=== PATIENT | male | born 1960 | race Caucasian/White ===

== ENCOUNTER 2020-02-16 12:06 | Observation (INO) ==
--- NOTE | 2020-02-16 15:05 | RAD ---
HISTORY:Chest painStudy: Single view chestComparison:NoneFindings:There is nonspecific elevation of the left hemidiaphragm no infiltrate, effusion, or pneumothorax identified .Cardiac and mediastinal contours are within normal limits .The soft tissues are intact .IMPRESSION:1. No acute cardiopulmonary abnormality.Electronically signed by: BRIGHT HOLLY (Feb 16, 2020 15:05:05)
[2020-02-16 15:12] LABS: BASOPHILS % (AUTO) 0.4 % (0.2-1.0); EOSINOPHILS % (AUTO) 0.7 % (0.9-2.9); HEMATOCRIT 44.9 % (42.0-54.0); HEMOGLOBIN 15.3 g/dL (13.5-18.0); LYMPHOCYTES # (AUTO) 0.7 X10^3/uL (1.3-2.9); LYMPHOCYTES % (AUTO) 20.1 % (21.0-51.0); MEAN CORPUSCULAR HEMOGLOBIN 29.9 pg (27.0-34.0); MEAN CORPUSCULAR HGB CONC 34.1 g/dL (33.0-35.0); MEAN CORPUSCULAR VOLUME 87.7 fL (80.0-100.0); MEAN PLATELET VOLUME 9.4 fL (7.4-11.0); MONOCYTES # (AUTO) 0.2 x10^3/uL (0.3-0.8); NEUTROPHILS # (AUTO) 2.4 x10^3/uL (2.2-4.8); NEUTROPHILS % (AUTO) 71.8 % (42.0-75.0); PLATELET COUNT 52 X10^3/uL (150.0-450.0); RED BLOOD COUNT 5.12 X10^6/uL (4.7-6.0); RED CELL DISTRIBUTION WIDTH 15.5 % (11.6-16.5); WHITE BLOOD COUNT 3.3 X10^3/uL (3.6-10.0)
[2020-02-16 15:25] LABS: ALANINE AMINOTRANSFERASE 27 Units/L (12-78); ALBUMIN 4.2 g/dL (3.4-5.0); ALKALINE PHOSPHATASE 84 Units/L (46-116); ASPARTATE AMINO TRANSFERASE 28 Units/L (15-37); BLOOD UREA NITROGEN 9 mg/dL (7-18); CALCIUM 9.1 mg/dL (8.5-10.1); CARBON DIOXIDE 30.7 mmol/L (21-32); CHLORIDE 105 mmol/L (98-107); COR NA(FOR HYPERGLY) 145 mmol/L (136-145); CREATININE 1.12 mg/dL (0.70-1.30); SODIUM 144 mmol/L (136-145); TOTAL PROTEIN 7.7 g/dL (6.4-8.2); eGFR NON BLACK RACES > 60 (>60)
[2020-02-16 15:37] LABS: CKMB % 1.2 % (<4); CREATINE KINASE 85 Units/L (39-308); TROPONIN I < 0.02 ng/mL (0-1.5)
[2020-02-16 15:40] VITALS: BMI 22.0
[2020-02-16] MEDS: MORPHINE SULFATE INJ 2 MG INJ IVP PRN ×2 (15:45→23:06)
[2020-02-16] MEDS: NITROSTAT SL PRN (16:30)
[2020-02-16] MEDS ORDERED: MORPHINE SULFATE INJ 2 MG INJ IVP ONE (16:54)
[2020-02-16] MEDS ORDERED: XANAX PO PRN ×2 (16:54→17:22)
[2020-02-16] MEDS ORDERED: XANAX ONE (17:07)
[2020-02-16] MEDS ORDERED: NITRO-BID OINT 2% UD (E.R. USE ONLY) ONE (17:08)
[2020-02-16 17:15] LABS: BILIRUBIN,URINE NEGATIVE (NEGATIVE); BLOOD/HEMOGLOBIN,URINE 2+ (NEGATIVE); GLUCOSE, URINE NEGATIVE (NEGATIVE); KETONES,URINE NEGATIVE (NEGATIVE); LEUKOCYTE ESTERASE ,URINE NEGATIVE (NEGATIVE); NITRITES,URINE NEGATIVE (NEGATIVE); PROTEIN,URINE NEGATIVE (NEGATIVE); UROBILINOGEN,URINE NORMAL (NORMAL)
[2020-02-16 17:23] LABS: APPEARANCE,URINE CLEAR (CLEAR); BACTERIA,URINE NEGATIVE /HPF (NEGATIVE); COLOR,URINE YELLOW (YELLOW); SQUAMOUS EPITHELIAL CELL,UR FEW /HPF (NEGATIVE)
[2020-02-16] MEDS ORDERED: NITRO-BID OINT 2% UD (E.R. USE ONLY) TD SCH (18:00)
[2020-02-16] MEDS: LOVENOX INJ 80 MG SYR SC SCH (20:45)
[2020-02-16] MEDS: NORCO 10/325 TAB PO PRN (20:46)
[2020-02-16 21:02] LABS: CKMB % 1.4 % (<4); CREATINE KINASE 70 Units/L (39-308); CREATINE KINASE MB < 1.0 ng/mL (0-4.0); TROPONIN I < 0.02 ng/mL (0-1.5)
[2020-02-17] MEDS: NITRO-BID OINT 2% Multi-Dose tube TD SCH ×2 (03:21→11:05)
[2020-02-17 03:23] LABS: CHOL/HDL RATIO 2.3 (0.0-5.0)
[2020-02-17] MEDS: NORCO 10/325 TAB PO PRN ×2 (03:23→10:10)
[2020-02-17 03:32] LABS: CKMB % 1.5 % (<4); CREATINE KINASE 65 Units/L (39-308); CREATINE KINASE MB < 1.0 ng/mL (0-4.0); TROPONIN I < 0.02 ng/mL (0-1.5)
[2020-02-17] MEDS: MORPHINE SULFATE INJ 2 MG INJ IVP PRN (05:11)
[2020-02-17] MEDS: NITROSTAT SL PRN ×3 (07:12→07:35)
[2020-02-17] MEDS: LOVENOX INJ 80 MG SYR SC SCH (08:58)
--- NOTE | 2020-02-17 16:14 | DR.H&P ---
H&P - History & Physical for Day of: H&P Date: 02/16/20 - Chief Complaint Chief Complaint: CHEST PAIN - History of Present Illness History of Present Illness: PT IS 59 WM DIRECT ADMIT FROM DR VIANCA TORRES OFFICE WITH CO SUBSTERNAL CHEST PAIN, AWAKENED HIM ABOUT DAYLIGHT THIS AM. PT STATES HE HAD SOB AND DIAPHORESIS WITH CHEST PAIN, TOOK 2 NITRO WITHOUT RELIEF. PT HAS HX OF CAD WITH ANGIOPLASTY AND STENT PLACEMENT ON 02/[address] PYLE. PT ADMITTED FOR TREATMENT AND EVALUATION OF ACUTE ILLNESS. - Past Medical History Past Medical History: Angina, Coronary Artery Disease, Hypertension - Past Surgical History Surgical History: Cholecystectomy - Family History Family Medical History: [place] - Social History Does patient currently use any type of tobacco product: No Have you used tobacco products in the last 12 months: No Type of Tobacco Use: None Does any household member use tobacco: No Alcohol Use: None - Medications Home Medications: No Known Drug Allergies Allergy (Verified 02/16/20 15:30) CONTINUE taking the following medications alprazolam 1 mg PO BID PRN 02/16/20 [History] atorvastatin 20 mg PO HS 02/16/20 [History] dutasteride [Avodart] 0.5 mg PO DAILY 02/16/20 [History] gabapentin 400 mg PO TID 02/16/20 [History] hydrocodone-acetaminophen [Lorcet HD] 1 tab PO Q8H PRN 02/16/20 [History] isosorbide mononitrate 30 mg PO DAILY 02/16/20 [History] metoprolol tartrate 25 mg PO BID 02/16/20 [History] multivitamin [Tab-A-Alesia] 1 tab PO DAILY 02/16/20 [History] omeprazole 40 mg PO DAILY 02/16/20 [History] ondansetron HCl 8 mg PO TID PRN 02/16/20 [History] tamsulosin 0.4 mg PO DAILY 02/16/20 [History] - Review of Systems Constitutional: No Symptoms Reported Eyes: No Symptoms Reported ENT: No Symptoms Reported Respiratory: Shortness of Breath Cardiovascular: Chest Pain Gastrointestinal: No Symptoms Reported Genitourinary: No Symptoms Reported Musculoskeletal: No Symptoms Reported Skin: No Symptoms Reported Neurological: No Symptoms Reported - Physical Exam Vital Signs: Temperature 97.6 F Pulse Rate [Right Brachial] 64 Respiratory Rate 18 Blood Pressure [Left Arm] 116/60 Blood Pressure [Right Arm] 111/64 O2 Sat by Pulse Oximetry 97 Oriented: Normal Ear: Normal Nose: Normal Throat: Normal Respiratory: RLL Diminished, LLL Diminished Cardiovascular: Normal. negative: Edema : Normal Auscultation: Bowel Sounds: Normal Palpation: Normal Tenderness: Normal Skin: Normal Musculoskeletal: Normal Psychiatric: Anxiety Affect: Anxious Speech Pattern: Clear, Appropriate - Assessment/Plan (1) Chest pain Status: Acute Plan: ADMIT, SERIAL CE AND EKG. VERIFY AND RESUME HOME MEDICATION. CONTINOUS CARDIAC MONITORING, BP CONTROL. OBTAIN LAST CATH REPORT, SUPPLEMENTAL O2 (2) CAD (coronary artery disease) Status: Acute - Allergies Allergies/Adverse Reactions: Allergies Allergy/AdvReac Type Severity Reaction Status Date / Time No Known Drug Allergies Allergy Verified 02/16/20 15:30
[2020-02-17 16:32] VITALS: BP 140/73
--- NOTE | 2020-03-15 22:58 | DR.CARTERD ---
- Discharge Summary for: Discharge Summary for Date of:: 02/17/20 - Admission Date Date of Admission: 02/16/20 - Admission Diagnoses Admission Diagnosis: Chest Pain - Discharge Date Discharge Date: 02/17/20 - Discharge Diagnoses Discharge Diagnosis: Chest Pain Ruled Out Acute Ischemia CAD HTN Anxiety - Hospital Course Hospital Course: PT IS 59 WM DIRECT ADMIT FROM DR VIANCA TORRES OFFICE WITH CO SUBSTERNAL CHEST PAIN, AWAKENED HIM ABOUT DAYLIGHT THIS AM. PT STATES HE HAD SOB AND DIAPHORESIS WITH CHEST PAIN, TOOK 2 NITRO WITHOUT RELIEF. PT HAS HX OF CAD WITH ANGIOPLASTY AND STENT PLACEMENT ON 02/[address] PYLE. PT ADMITTED FOR TREATMENT AND EVALUATION OF ACUTE ILLNESS. CARDIAC EMZYMES REVIEWED NO ELEVATION. EKGS REMAINED UNCHANGED. PATIENT WAS DISCHARGED TO BE FOLLOWED ON OP BASIS. - Discharge Medications Discharge Medications: Home Medication List alprazolam 1 mg PO BID PRN 02/16/20 [History] atorvastatin 20 mg PO HS 02/16/20 [History] dutasteride [Avodart] 0.5 mg PO DAILY 02/16/20 [History] gabapentin 400 mg PO TID 02/16/20 [History] hydrocodone-acetaminophen [Lorcet HD] 1 tab PO Q8H PRN 02/16/20 [History] isosorbide mononitrate 30 mg PO DAILY 02/16/20 [History] metoprolol tartrate 25 mg PO BID 02/16/20 [History] multivitamin [Tab-A-Alesia] 1 tab PO DAILY 02/16/20 [History] omeprazole 40 mg PO DAILY 02/16/20 [History] ondansetron HCl 8 mg PO TID PRN 02/16/20 [History] tamsulosin 0.4 mg PO DAILY 02/16/20 [History] Prescriptions: - Discharge Disposition Discharge Disposition: home - Discharge Diagnoses Health Concerns: Post Hospitalization: new medications and changes needed to prevent readmission or further decline. Pt educated and given instructions on all concerns. Care Plan Goals: Problem: Chest Pain Goals: Chest pain improving/resolved Instructions: Contact your physician or report to the closest Emergency Department if your chest pain returns or worsens. Take medications as prescribed. Follow up with your primary doctor as instructed. Plan of Treatment: Continue with present treatment and follow up plan. Pt is to keep follow up appointment as instructed and take medications as ordered.
== END 2020-02-17 16:50 | disposition home or self-care (01) ==
LOC: MED/SURG
PROVIDERS: ADMIT Internal Medicine; ATTEND Internal Medicine
DX: R73.09 Other abnormal glucose; R07.2 Precordial pain; R06.02 Shortness of breath; I10 Essential (primary) hypertension; Z79.899 Other long term (current) drug therapy; I25.10 Atherosclerotic heart disease of native coronary artery without angina pectoris